=== PATIENT | male | born 1985 | race African-American/Black ===

== ENCOUNTER 2018-07-05 19:49 | Emergency (ER) | payer SELFPAY ==
[~2018-07-05] VITALS: Ht 185.4 cm; Wt 86.4 kg
[2018-07-05 20:19] VITALS: Ht 185.4 cm; Wt 86.4 kg
[2018-07-05] MEDS ORDERED: TENORMIN100 MG PO (20:20)
[2018-07-05] MEDS ORDERED: KLONOPIN1 MG PO (20:20)
[2018-07-05] MEDS ORDERED: CELEXA40 MG PO (20:20)
[2018-07-05 21:04] LABS: BASOPHILS 0.5 % (0-2); EOSINOPHILS 3.9 % (0-7); HEMATOCRIT 44.1 % (42.0-54.0); HEMOGLOBIN 15.5 g/dL (13.5-17.5); IMMATURE GRANULOCYTES 0.3 % (0-5); LYMPHOCYTES 45.3 % (15-50); MCH 30.5 pg (26.0-34.0); MCHC 35.1 g/dL (31.0-37.0); MCV 86.6 fL (80.0-100.0); MEAN PLATELET VOLUME 9.4 fL (7.4-10.4); MONOCYTES 9.1 % (2-11); NEUTROPHILS 40.9 % (40-80); PLATELET COUNT 231 10x3/uL (130-400); RBC 5.09 10x6/uL (4.20-6.10); RDW 13.4 % (11.5-14.5); WBC 7.8 10x3/uL (4.8-10.8)
[2018-07-05 21:25] LABS: ALBUMIN 3.8 g/dL (3.4-5.0); ALKALINE PHOSPHATASE 102 U/L (46-116); ALT (SGPT) 36 U/L (10-68); BILIRUBIN - TOTAL 0.52 mg/dL (0.2-1.3); CALC OSMOLALITY 275 mosm/kg (275-300); CALCIUM 9.1 mg/dL (8.5-10.1); CARBON DIOXIDE 29.8 mmol/L (21.0-32.0); CHLORIDE - SERUM 105 mmol/L (98-107); CREATINE KINASE 196 UL (21-232); CREATININE - SERUM 1.1 mg/dL (0.6-1.3); GLUCOSE 79 mg/dL (74-106); PROTEIN - SERUM 7.3 g/dL (6.4-8.2); SODIUM 139 mmol/L (136-145); UREA NITROGEN 10 mg/dL (7-18); eGFR NON AFRICAN AMERICAN 82 mL/min (90-120)
[2018-07-05 21:26] LABS: TROPONIN-I < 0.017 ng/mL (0.000-0.060)
[2018-07-05 22:23] VITALS: BP 135/78
[2018-07-05] MEDS ORDERED: MEDROL DOSE PACK4 MG PO (22:45)
[2018-07-05] MEDS ORDERED: PROAIR HFA8.5 GM INH (22:45)
== END 2018-07-05 23:01 | disposition home or self-care (01) ==
LOC: D.ER 19:49
PROVIDERS: Family Medicine
DX: J40 Bronchitis, not specified as acute or chronic (principal); I10 Essential (primary) hypertension; F17.200 Nicotine dependence, unspecified, uncomplicated

== ENCOUNTER 2021-01-09 09:22 | Emergency (ER) | payer MEDICAID ==
[~2021-01-09] VITALS: Ht 185.4 cm; Wt 97.7 kg
[~2021-01-09 09:22] MED LIST: CELEXA40 MG PO; KLONOPIN1 MG PO; MEDROL DOSE PACK4 MG PO; PROAIR HFA8.5 GM INH; TENORMIN100 MG PO
[2021-01-09 09:28] VITALS: Ht 185.4 cm; Wt 97.7 kg
[2021-01-09] MEDS ORDERED: LITHIUM CARBON300 MG PO (09:29)
[2021-01-09] MEDS ORDERED: HTN MED? (09:30)
[2021-01-09] MEDS ORDERED: SEROQUEL300 MG PO (09:30)
[2021-01-09] MEDS ORDERED: DICLOFENAC SODI50 MG PO (10:14)
[2021-01-09] MEDS ORDERED: PROCTOFOAM-HC 110 GM RC (10:14)
[2021-01-09 10:39] VITALS: BP 137/94
== END 2021-01-09 10:39 | disposition home or self-care (01) ==
LOC: D.ER 09:22
DX: K64.2 Third degree hemorrhoids (principal); I10 Essential (primary) hypertension; Z72.0 Tobacco use